=== PATIENT | male | born 2000 | race Caucasian/White ===

== ENCOUNTER 2022-07-12 14:18 | Emergency (ER) | payer OTHER ==
[~2022-07-12] VITALS: Ht 177.8 cm; Wt 77.3 kg
[2022-07-12 14:30] VITALS: BP 142/73
[2022-07-12] MEDS ORDERED: AMOX1TAB16 PO (14:30)
[2022-07-12] MEDS ORDERED: IBUP-1492 PO (14:30)
== END 2022-07-12 14:39 | disposition home or self-care (01) ==
LOC: EMS 14:28
DX: K13.79 Other lesions of oral mucosa (principal); K02.9 Dental caries, unspecified
CPT/HCPCS: 99283